=== PATIENT | female | born 1985 | race Caucasian/White ===

== ENCOUNTER 2018-09-06 09:30 | Emergency (ER) | payer BC ==
--- OUTSIDE RECORDS SUMMARY | 2018-09-06 10:00 | XMS REPORT ---
:1985 External Reference #:[id number] Author Organization [facility] Address [address], [address] [place] [address] Phone [phone] Care Team Providers Name Role Phone Sherice Cortes PA Care Team Information Professional Poker Player Unavailable Sherice Cortes PA Primary Care Physician Unavailable Payers Type Date Identification Numbers Payment Subscriber Provider Workers Compensation Onset: Policy Number: [facility] 2018 [id number] [facility] Name: [address] PayID: [id number] [address] [place] [address] Problems Date Description Provider Status Onset: 06/22/2018 Closed fracture of phalanx of foot Nicole Lopes PA Active Onset: 07/13/2018 Closed fracture proximal phalanx, toe Nicole Lopes PA Active Family History Date Family Member(s) Problem(s) Comments Maternal Grandfather due to Unknown Causes () Maternal Grandmother Heart Disease Maternal Aunts Crohn's Disease Maternal Aunts Lupus Maternal Aunts Diabetes Maternal Aunts Cervical Cancer Social History Type Date Description Comments Lives With Fiance Lives With Daughter 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 Hand Dominance Right-handed Cigarette Use Quit ETOH Use Currently consumes alcohol socially Recreational Drug Use Denies Drug Use Smoking Patient is a former smoker Daily Caffeine Current Caffeine User Allergies, Adverse Reactions, Alerts Date Description Reaction Status Severity Comments 06/22/2018 NKDA active Medications Medication Date Status Form Strength Qnty SIG Indications Ordering Provider No Active 06/22/2018 Active Unknown Medications Vital Signs Date Vital Result Comment 07/31/2018 BP Systolic 137 mmHg BP Diastolic 89 mmHg Body Temperature 96.5 F Heart Rate 88 /min O2 % BldC Oximetry 97 % Pain Level 3 07/13/2018 BP Systolic 140 mmHg BP Diastolic 99 mmHg Body Temperature 97.1 F Heart Rate 114 /min O2 % BldC Oximetry 98 % Pain Level 4 06/22/2018 BP Systolic Sitting Left Arm 114 mmHg BP Diastolic Sitting Left Arm 76 mmHg Body Temperature 97.6 F Heart Rate 86 /min Respiratory Rate 16 /min Height 68 inches 5'8" Weight 157.00 lb BMI (Body Mass Index) 23.9 kg/m2 BSA (Body Surface Area) 1.84 m2 [place] body weight in kilograms 63 O2 % BldC Oximetry 98 % Results Description No Information Procedures Date CPT Code Description Status 07/31/2018 71614 Radiology, Toe(S) 2 Views Completed 07/13/2018 85763 Radiology, Toe(S) 2 Views Completed 07/13/2018 33033 Radiology, Toe(S) 2 Views Completed 06/22/2018 09597 Radiology, Toe(S) 2 Views Completed 06/22/2018 12579 Radiology, Toe(S) 2 Views Completed 06/22/2018 53304 Toe Fracture Lesser Completed Encounters Type Date Location Provider CPT E/M Dx Office Visit 07/31/2018 8:30a [place] [address] M79.675 S92.512D Plan of Care 07/31/2018 - Nicole Lopes PAM79.675 Pain in left toe(s)Follow up:prnS92.512D Disp fx of prox phalanx of l less toe(s), 7thDComments:Overall patient is doing well. Continue in shoe wear as tolerated. Activities as tolerated. Follow up for recheck on an as-needed basis.
[2018-09-06 10:28] VITALS: BP 130/81
--- NOTE | 2018-09-06 11:08 | UC ---
Eye Complaint HPI - HPI Summary HPI Summary: Patient woke up today with red crusty eyes. has had cold symptoms - History of Current Complaint Chief Complaint: UCEye Stated Complaint: RIGHT EYE CONCERN Time Seen by Provider: 09/06/18 11:00 Hx Obtained From: Patient Hx Last Menstrual Period: 08/16/16 ?: No Onset/Duration: Sudden Onset Timing: Constant Severity Initially: Mild Severity Currently: Mild Pain Intensity: 4 Location of Injury: Sclera Character: Foreign Body Sensation Associated Signs And Symptoms: Positive: Drainage (Purulent) - Allergies/Home Medications Allergies/Adverse Reactions: Allergies Allergy/AdvReac Type Severity Reaction Status Date / Time No Known Allergies Allergy Verified 09/02/16 12:36 PMH/Surg Hx/FS Hx/Imm Hx Previously Healthy: Yes - Surgical History Surgical History: Yes Surgery Procedure, Year, and Place: tonsillectomy - Family History Known Family History: Negative: Respiratory Disease - Social History Alcohol Use: Occasionally Substance Use Type: None Smoking Status (MU): Light Every Day Tobacco Smoker Type: Cigarettes Amount Used/How Often: 3-4 cig daily Household Exposure Type: Cigarettes - Immunization History Most Recent Influenza Vaccination: none Review of Systems All Other Systems Reviewed And Are Negative: Yes Constitutional: Positive: Negative Skin: Positive: Negative Eyes: Positive: Drainage, Eye Redness ENT: Positive: Negative Respiratory: Positive: Negative Cardiovascular: Positive: Negative Gastrointestinal: Positive: Negative Genitourinary: Positive: Negative Motor: Positive: Negative Neurovascular: Positive: Negative Musculoskeletal: Positive: Negative Neurological: Positive: Negative Psychological: Positive: Negative Is Patient Immunocompromised?: No Physical Exam Triage Information Reviewed: Yes Appearance: Well-Nourished, Ill-Appearing, Pain Distress Vital Signs: Initial Vital Signs Temp 97.9 F 09/06/18 10:24 Pulse 88 09/06/18 10:24 Resp 16 09/06/18 10:24 BP 130/81 09/06/18 10:24 Pulse Ox 99 09/06/18 10:24 Vital Signs Reviewed: Yes Eye Exam: Normal ENT Exam: Normal ENT: Positive: Pharynx normal, TMs normal Dental Exam: Normal Neck exam: Normal Respiratory Exam: Normal Respiratory: Positive: Chest non-tender, Lungs clear, Normal breath sounds Cardiovascular Exam: Normal Cardiovascular: Positive: RRR, No Murmur, Pulses Normal Abdominal Exam: Normal Abdomen Description: Positive: Nontender, No Organomegaly, Soft Bowel Sounds: Positive: Present Musculoskeletal Exam: Normal Neurological Exam: Normal Psychological Exam: Normal Skin Exam: Normal Eye Complaint Course/Dx - Course Course Of Treatment: hx obtained, exam performed ,meds reviewed, treated for conjucntivitis - Differential Dx/Diagnosis Differential Diagnosis/HQI/PQRI: Conjunctivitis Provider Diagnosis: Bacterial conjunctivitis Discharge - Sign-Out/Discharge Documenting (check all that apply): Patient Departure All imaging exams completed and their final reports reviewed: No Studies - Discharge Plan Condition: Stable Disposition: HOME Prescriptions: Erythromycin OPHTH.OINT* [Ilotycin OPHTH.OINT*] 1 applic BOTH EYES BEDTIME #1 tube Patient Education Materials: Conjunctivitis (ED) Forms: *Work Release Referrals: Alison Gonzalez MD [Primary Care Provider] - Additional Instructions: 1. use the cream in both eye three times a day for 3 days if any redness persists use for another 2 days 2. follow up as needed. - Billing Disposition and Condition Condition: STABLE Disposition: Home - Attestation Statements Provider Attestation: Per institutional requirements, I have reviewed the chart, however, I was not consulted specifically or made aware of this patient by the midlevel provider. I did not personally evaluate, interact with , or disposition this patient.
== END 2018-09-06 11:15 | disposition home or self-care (01) ==
LOC: UCCORT 09:30
DX: H10.89 Other conjunctivitis (principal); F17.210 Nicotine dependence, cigarettes, uncomplicated
CPT/HCPCS: 99212; G0463

== ENCOUNTER 2019-10-18 16:41 | Emergency (ER) | payer BC ==
[2019-10-18 18:31] VITALS: BP 149/90
--- NOTE | 2019-10-18 18:39 | UC ---
Complaint Female HPI - HPI Summary HPI Summary: 33 y/o female presents to the urgent care c/o mild vaginal discharge. Pt reports she just found out that her partner was Dx w/ Chlamydia and is currently taking the treatment. She request STD's screening. She states she has a mild vaginal discharge, but she thinks that is her normal. Last PAP was done 5 years ago and was negative. However Hx of HVP in 2002, but was treated. LMP: w/ regular menstrual cycles. Pt denies fever, urinary symptoms, SOB, abdominal pain, flank pain, pelvic pain, rash, chest pain, N/V/D. - History Of Current Complaint Chief Complaint: UCGeneralIllness Stated Complaint: PERSONAL Time Seen by Provider: 10/18/19 18:26 Hx Obtained From: Patient Hx Last Menstrual Period: 10/01/19 ?: No - Pt declines test Onset/Duration: Gradual Onset, Lasting Days - she founf out her partner was Dx yesterday w/ chlamydia and if currently taken the treatment, Still Present Timing: Constant Severity Initially: Mild Severity Currently: Mild Pain Intensity: 0 Pain Scale Used: 0-10 Numeric Character: Not Applicable Aggravating Factor(s): [place] Alleviating Factor(s): Nothing Associated Signs And Symptoms: Positive: Vaginal Discharge. Negative: Fever, Back Pain, Vaginal Bleeding/Discharge, Nausea, Vomiting(# Of Episodes =), Genital Blisters, Retained Foregin Body (Specify) - Risk Factors Ectopic Risk Factor: Negative Ovarian Torsion Risk Factor: Negative - Allergies/Home Medications Allergies/Adverse Reactions: Allergies Allergy/AdvReac Type Severity Reaction Status Date / Time No Known Allergies Allergy Verified 10/18/19 18:25 PMH/Surg Hx/FS Hx/Imm Hx Previously Healthy: Yes - Pt denies PMHX - Surgical History Surgical History: Yes Surgery Procedure, Year, and Place: tonsillectomy - Family History Known Family History: Positive: Cardiac Disease, Hypertension, Diabetes Negative: Respiratory Disease - Social History Occupation: Employed Full-time Lives: With Family Alcohol Use: Weekly Substance Use Type: None Smoking Status (MU): Light Every Day Tobacco Smoker Type: Cigarettes Amount Used/How Often: 1/2 PPD Household Exposure Type: Cigarettes - Immunization History Most Recent Influenza Vaccination: none Review of Systems All Other Systems Reviewed And Are Negative: Yes Constitutional: Positive: Negative Skin: Positive: Negative Eyes: Positive: Negative ENT: Positive: Negative Respiratory: Positive: Negative Cardiovascular: Positive: Negative Gastrointestinal: Positive: Negative Genitourinary: Positive: Vaginal/Penile Discharge - mild, Other - exposure to chlamydia Motor: Positive: Negative Neurovascular: Positive: Negative Musculoskeletal: Positive: Negative Neurological: Positive: Negative Psychological: Positive: Negative Is Patient Immunocompromised?: No Physical Exam - Summary Physical Exam Summary: Vital signs: reviewed General: well developed, well nourished female sitting in the examining table w/o any acute distress. Head: Normocephalic, no lesions. Eyes: PERRLA, EOM's full, conjunctiva clear, fundi grossly normal. Ears: EAC's clear, TM's normal. Nose: Mucosa normal, no obstruction. Throat: Clear, no exudates, no lesions. Neck: Supple, no masses, no thyromegaly, no bruits. Chest: Lungs clear, no rales, no rhonchi, no wheezes. Heart: RR, no murmurs, no rubs, no gallops. Abdomen: Soft, no tenderness, no masses, BS normal. Pelvic: I was assisted by nurse Lexi. External genitalia within normal limits. There is no lesions there is no masses noted. Speculum exam: The vaginal green are within normal limits w/ yellowish vaginal discharge, no lesions or rashes. The cervix is closed with surrounding erythema, no lesions or masses. There is no CMT's, and no adnexal masses. Sample sent to Lab for G/C and Affirm panel. Rectal: No lesions, no hemorrhoids, Back: Normal curvature, no tenderness. Extremities: FROM, no deformities, no edema, no erythema. Neuro: Physiological, no localizing findings. Skin: Normal, no rashes, no lesions noted. Triage Information Reviewed: Yes Vital Signs: Initial Vital Signs Temp 98.4 F 10/18/19 18:25 Pulse 106 10/18/19 18:25 Resp 16 10/18/19 18:25 BP 149/90 10/18/19 18:25 Pulse Ox 100 10/18/19 18:25 Complaint Female Dx - Course Course Of Treatment: 33 y/o female presents to the urgent care c/o mild vaginal discharge. Pt reports she just found out that her partner was Dx w/ Chlamydia and is currently taking the treatment. She request STD's screening. She states she has a mild vaginal discharge, but she thinks that is her normal. Last PAP was done 5 years ago and was negative. However Hx of HVP in 2002, but was treated. LMP: w/ regular menstrual cycles. Pt denies fever, urinary symptoms, SOB, abdominal pain, flank pain, pelvic pain, rash, chest pain, N/V/D. Hx obtained. I was assisted by nurse Lexi for pelvic exam: The vaginal green are within normal limits w/ yellowish vaginal discharge, no lesions or rashes. The cervix is closed with mild surrounding erythema, no masses. There is no CMT's, and no adnexal masses. Sample sent to Lab for G/C, trichomonas and affirm panel. Pt will be notfied of abnormal result for further management. UA: + trace leukoesterase, test:negative. Pt Rx Doxycycine PO for prophylactic treatment for chlamydia. Pt educated on STD's and protection. Strongly advised to f/u w/ her PROFESSOR OF ENVIRONMENTAL STUDIES for a PAP. Pt's BP is elevated today advised to decrease salt in diet, monitor BP and f/u with PCP if BP continues to be elevated for further management. D/C instructions explained. Pt understood and agreed with plan of care. - Differential Dx/Diagnosis Differential Diagnosis/HQI/PQRI: Cervicitis, Pelvic Inflammatory Disease, Renal Colic, Sexually Transmitted Disease, Urinary Tract Infection Provider Diagnosis: Exposure to chlamydia, Elevated BP without diagnosis of hypertension Discharge ED - Sign-Out/Discharge Documenting (check all that apply): Patient Departure - D/C home All imaging exams completed and their final reports reviewed: No Studies - Discharge Plan Condition: Stable Disposition: HOME Prescriptions: DOXYcycline CAP(*) [DOXYcycline 100MG CAP(*)] 100 mg PO BID #14 cap Patient Education Materials: Chlamydia (ED) Referrals: Alison Gonzalez MD [Primary Care Provider] - 2 Days Additional Instructions: 1-Please f/u with PROFESSOR OF ENVIRONMENTAL STUDIES for a PAP as soon as possible due to changes in your cervix 2- Please take doxycycline PO as directed for chlamydia. Avoid sexual intercourse until it is completely clear 3- Specimen were sent to lab, if anything abnormal you will receive a call from us for further treatment. 4- Urine was sent to lab for urine culture, you will be notified of any abnormality for further management 5- Your BP is elevated today advised to decrease salt in diet, monitor BP and f/ u with PCP for further management. - Billing Disposition and Condition Condition: STABLE Disposition: Home
--- NOTE | 2019-10-21 07:14 | UC ---
- Progress Note Progress Note: Please notify patient she has tested positive for Gardnerella, G.C./Chlam results still pending. Recommend treatment for Gardnerella with metronidazole 500mg q12h x 7 days. This has been ordered and sent to the pharmacy. No alcohol 24 hours before, after and while taking metronidazole. Course/Dx - Diagnoses Provider Diagnoses: Exposure to chlamydia, Elevated BP without diagnosis of hypertension Discharge ED - Sign-Out/Discharge Documenting (check all that apply): Post-Discharge Follow Up All imaging exams completed and their final reports reviewed: No Studies - Discharge Plan Condition: Stable Disposition: HOME Prescriptions: DOXYcycline CAP(*) [DOXYcycline 100MG CAP(*)] 100 mg PO BID #14 cap metroNIDAZOLE * [Flagyl] 500 mg PO Q12H 7 Days #14 tablet Patient Education Materials: Chlamydia (ED) Referrals: Alison Gonzalez MD [Primary Care Provider] - 2 Days Additional Instructions: 1-Please f/u with LOSS PREVENTION REPRESENTATIVE for a PAP as soon as possible due to changes in your cervix 2- Please take doxycycline PO as directed for chlamydia. Avoid sexual intercourse until it is completely clear 3- Specimen were sent to lab, if anything abnormal you will receive a call from us for further treatment. 4- Urine was sent to lab for urine culture, you will be notified of any abnormality for further management 5- Your BP is elevated today advised to decrease salt in diet, monitor BP and f/ u with PCP for further management. - Billing Disposition and Condition Condition: STABLE Disposition: Home
[2019-10-22 12:49] LABS: Trichomonas vag NAA Female Positive (Negative)
== END 2019-10-18 19:12 | disposition home or self-care (01) ==
LOC: UCCORT 16:41
DX: N89.8 Other specified noninflammatory disorders of vagina (principal); R03.0 Elevated blood-pressure reading, without diagnosis of hypertension; Z20.2 Contact with and (suspected) exposure to infections with a predominantly sexual mode of transmission; F17.210 Nicotine dependence, cigarettes, uncomplicated
CPT/HCPCS: 81003; 87086; 87480; 87491; 87510; 87591; 87661; 99212; G0463